=== PATIENT | male | born 1965 | race Two or more races ===

== ENCOUNTER 2018-09-28 17:26 | Emergency (ER) | payer BC ==
[~2018-09-28] VITALS: Ht 162.6 cm; Wt 59.0 kg
[2018-09-28 17:39] VITALS: BP 133/72
[2018-09-28] MEDS ORDERED: DIPHTH,PERTUSS(ACELL),TET TOX 0.5 ML DISP.SYRIN. VAX IM ONE (17:45)
[2018-09-28] MEDS ORDERED: LIDOCAINE WITH 8.4% SOD BICARB 3 ML DISP.SYRIN. INJ ONE (17:45)
--- NOTE | 2018-09-28 17:46 | PHYS DOC ---
Past Medical History Past Medical History: No Pertinent History Past Surgical History: No Surgical History Alcohol Use: None Drug Use: None Adult General Chief Complaint Chief Complaint: LACERATION/AVULSION HPI HPI Patient is a 52 year old right handed male who presents with left middle finger laceration. Patient cut himself accidentally with a knife cutting meat. Patient is American speaking and interpretation is provided by family. Review of Systems Review of Systems Constitutional: Denies fever or chills [] Musculoskeletal: Denies back pain or joint pain [] Integument: Reports left middle finger laceration Neurologic: Denies headache, focal weakness or sensory changes [] All other systems were reviewed and found to be within normal limits, except as documented in this note. Current Medications Current Medications Current Medications Medications (Trade) Dose Ordered Sig/Marilu Start Time Stop Time Status Last Admin Dose Admin Diphtheria/ Tetanus/Acell Pertussis (Boostrix) 0.5 ml ONCE ONCE 09/28/18 17:45 09/28/18 17:46 DC 09/28/18 18:32 0.5 ML Lidocaine/Sodium Bicarbonate (Buffered Lidocaine 1%) 6 ml 1X ONCE 09/28/18 17:45 09/28/18 17:46 DC 09/28/18 18:31 6 ML Allergies Allergies Allergies Coded Allergies Type Severity Reaction Last Updated Verified No Known Drug Allergies 11/02/15 No Physical Exam Physical Exam Constitutional: Well developed, well nourished, no acute distress, non-toxic appearance. [] Skin: Left medial middle finger with a laceration approximately 4 cm long, this no obvious tendon involvement. Patient able to flex and extend the left middle finger at the MIP, PIP and DIP joints. Adequate radial, medial sensation to the left middle finger. +2 left radial pulse. Cap refill less than 2 seconds the left middle finger. Back: No tenderness, no CVA tenderness. [] Extremities: No tenderness, no cyanosis, no clubbing, ROM intact, no edema. [] Neurologic: Alert and oriented X 3, normal motor function, normal sensory function, no focal deficits noted. [] Psychologic: Affect normal, judgement normal, mood normal. [] Current Patient Data Vital Signs Vital Signs Date Time Temp Pulse Resp B/P (MAP) Pulse Ox O2 Delivery O2 Flow Rate FiO2 09/28/18 17:39 98.2 57 16 133/72 (92) 97 Room Air 98.2 EKG EKG [] Radiology/Procedures Radiology/Procedures Laceration/Wound Repair Wound Location: Left middle finger] Wound's Depth, Shape: Vertical Wound Length (cm): Approximately 6 cm Wound Explored: clean Irrigated w/ Saline (ccs): 30 Betadine Prep?: Yes Anesthesia: 1% buffered lidocaine Volume Anesthetic (ccs): 3 Wound Repaired With: 4.0Vicryl Suture /Type: Interrupted sutures Number of Sutures: 12 Progress : Wound was covered with nonstick dressing Course & Med Decision Making Course & Med Decision Making Pertinent Labs and Imaging studies reviewed. (See chart for details) This is a 52-year-old male patient presenting to the ED today with left middle finger laceration that was closed by me as noted in procedures. Wound care instructions and return precautions provided. Tetanus updated. Dragon Disclaimer Dragon Disclaimer This electronic medical record was generated, in whole or in part, using a voice recognition dictation system. Departure Departure Impression: Primary Impression: Laceration of finger Disposition: HOME, SELF-CARE Condition: STABLE Referrals: NO PCP (PCP) Follow-up with your doctor as needed Patient Instructions: Fingertip Laceration Additional Instructions: You have left middle finger laceration that was closed with dissolvable stitches. You can shower and wash the area. Keep it clean and dry. Apply Neosporin to the area twice a day. Monitor the area for any worsening condition including but not limited to increased redness the area, yellow drainage from the area, odor drainage from the area and return to the ED if they occur. The stitches will dissolve on disappear on their own Problem Qualifiers Primary Impression: Laceration of finger Encounter type: initial encounter Finger: middle finger Damage to nail status: without damage Foreign body presence: without foreign body Laterality: left Qualified Codes: S61.213A - Laceration without foreign body of left middle finger without damage to nail, initial encounter MARÍA COE APRN Sep 28, 2018 17:46
== END 2018-09-28 19:22 | disposition home or self-care (01) ==
LOC: ER 17:26
DX: S61.213A Laceration without foreign body of left middle finger without damage to nail, initial encounter (principal); W26.0XXA Contact with knife, initial encounter; Y93.89 Activity, other specified; Y92.89 Other specified places as the place of occurrence of the external cause; Y99.8 Other external cause status
CPT/HCPCS: 12002; 90471; 90715; 99283